=== PATIENT | male | born 1960 | race Caucasian/White ===

== ENCOUNTER 2016-09-25 13:26 | Inpatient (IN) | payer BC ==
[~2016-09-25] VITALS: Ht 177.8 cm; Wt 88.0 kg
[2016-09-25 14:20] LABS: DEFINITIVE Y; Hematocrit 34.5 % (41.0-53.0); Hemoglobin 12.1 g/dL (13.5-17.5); Mean Corpuscular Hemoglobin 32.2 pg (28.0-32.0); Mean Corpuscular Hgb Conc. 35.2 g/dL (32.0-36.0); Mean Corpuscular Volume 91.6 fL (80.0-100.0); Mean Platelet Volume 7.7 fL (7.4-10.4); Platelet Count (auto) 52 10^3/uL (140-450); Red Cell Distribution Width 14.5 % (11.6-16.0); SUSPECT Y; White Blood Cell 19.4 10^3/uL (4.4-10.8)
[2016-09-25 14:31] LABS: Albumin 3.4 g/dL (3.4-5.0); Alkaline Phosphatase 110 U/L (45-117); Anion Gap 8 (5-15); Aspartate Aminotransferase 236 U/L (15-37); BUN/Creatinine Ratio 21.4; Bilirubin, Total 0.3 mg/dL (0.2-1.0); Blood Urea Nitrogen 18 mg/dL (7-18); Calcium 8.5 mg/dL (8.5-10.1); Carbon Dioxide 26 mmol/L (21-32); Chloride 106 mmol/L (98-107); GFR African American 122 mL/min; GFR Non-African American 101 mL/min; Glucose 149 mg/dL (74-106); Magnesium 2.4 mg/dL (1.6-2.6); Potassium 3.9 mmol/L (3.5-5.1); Sodium 140 mmol/L (136-145); Total Protein 6.5 g/dL (6.4-8.2)
[2016-09-25 14:34] LABS: INR 0.91 (0.9-1.15); Partial Thromboplastin Time 22.7 sec (22.64-33.71); Prothrombin Time 9.9 sec (9.37-12.3)
[2016-09-25 14:40] LABS: Promyelocytes % 0
[2016-09-25 17:11] LABS: Anisocytosis Slight; Metamyelocytes % 6; Myelocytes % 1; Platelet Estimate Decreased; Reactive Lymphocytes 2
[2016-09-25 17:12] LABS: Ovalocytes FEW
[2016-09-25] MEDS ORDERED: TEMAZEPAM 15 MG CAP PO PRN (17:45)
[2016-09-25] MEDS ORDERED: MORPHINE SULF INJ 2 MG/ML SYRINGE 1ML IV PRN ×2 (17:45)
[2016-09-25] MEDS ORDERED: LACTULOSE 20Gm/30ML SOLN PO PRN (17:45)
[2016-09-25] MEDS ORDERED: PROMETHAZINE HCL 25 MG/ML 1ML IV PRN (17:45)
[2016-09-25] MEDS ORDERED: NITROGLYCERIN 0.4 MG SL TAB SL PRN (17:45)
[2016-09-25] MEDS ORDERED: LORazepam 0.5 MG TAB PO PRN (17:45)
[2016-09-25] MEDS ORDERED: PANTOPRAZOLE 40 MG TAB PO ONE (18:15)
[2016-09-25 18:17] LABS: Amylase 80 U/L (25-115)
[2016-09-25 19:31] LABS: Urine RBC None Seen /hpf (0 - 3)
[2016-09-25] MEDS: SODIUM CHLORIDE 0.9% 1,000 ML IV SCH (19:44)
[2016-09-25 19:50] LABS: Urine Bilirubin Negative (Negative); Urine Blood Negative /uL (Negative); Urine Color Yellow (Yellow); Urine Glucose Normal (Normal); Urine Ketone Negative (Negative); Urine Nitrite Negative (Negative); Urine Urobilinogen Normal (Negative); Urine pH 6.5 (5.0-8.0)
[2016-09-25 21:30] VITALS: BP 121/74
[2016-09-26] MEDS ORDERED: HYDR-4663 PO (01:01)
[2016-09-26] MEDS ORDERED: OME20T PO (01:01)
[2016-09-26] MEDS ORDERED: ONDA8TAB6 PO (01:01)
[2016-09-26] MEDS ORDERED: DOCU-94 PO (01:01)
[2016-09-26] MEDS ORDERED: ACET-1156 PO (01:01)
[2016-09-26] MEDS ORDERED: PRO10T PO (01:01)
[2016-09-26] MEDS: SODIUM CHLORIDE 0.9% 1,000 ML IV SCH (02:02)
[2016-09-26 05:00] VITALS: BP 125/80
[2016-09-26 06:21] LABS: CONDITION Y; DEFINITIVE Y; Hematocrit 31.2 % (41.0-53.0); Hemoglobin 10.8 g/dL (13.5-17.5); Mean Corpuscular Hemoglobin 32.1 pg (28.0-32.0); Mean Corpuscular Hgb Conc. 34.7 g/dL (32.0-36.0); Mean Corpuscular Volume 92.5 fL (80.0-100.0); Mean Platelet Volume 7.8 fL (7.4-10.4); Platelet Count (auto) 52 10^3/uL (140-450); Red Cell Distribution Width 14.6 % (11.6-16.0); SUSPECT Y; White Blood Cell 18.7 10^3/uL (4.4-10.8)
[2016-09-26 06:28] LABS: Promyelocytes % 0; Reactive Lymphocytes 0
[2016-09-26 06:46] LABS: Potassium 4.6 mmol/L (3.5-5.1)
[2016-09-26 07:01] LABS: BUN/Creatinine Ratio 24.7; Bilirubin, Total 0.2 mg/dL (0.2-1.0); Total Protein 5.7 g/dL (6.4-8.2)
[2016-09-26 09:00] VITALS: BP 132/82
[2016-09-26] MEDS ORDERED: PANTOPRAZOLE 40 MG TAB PO SCH (10:00)
[2016-09-26 10:21] LABS: Metamyelocytes % 2; Myelocytes % 1; Platelet Estimate Decreased
[2016-09-26 12:38] VITALS: BP 132/89
[2016-09-26 13:00] VITALS: BP 120/77
== END 2016-09-26 13:25 | disposition home or self-care (01) | DRG 842 ==
LOC: ER 13:26 → TELE 13:27 → TELE-CENTR 21:25
PROVIDERS: ADMIT Internal Medicine; ATTEND Internal Medicine
DX: C85.10 Unspecified B-cell lymphoma, unspecified site (principal); D64.9 Anemia, unspecified; D69.6 Thrombocytopenia, unspecified; D72.829 Elevated white blood cell count, unspecified; K40.90 Unilateral inguinal hernia, without obstruction or gangrene, not specified as recurrent; K42.9 Umbilical hernia without obstruction or gangrene; R16.1 Splenomegaly, not elsewhere classified; R73.9 Hyperglycemia, unspecified; N28.1 Cyst of kidney, acquired; Z82.49 Family history of ischemic heart disease and other diseases of the circulatory system; Z83.3 Family history of diabetes mellitus; Z86.010 Personal history of colon polyps; Z92.21 Personal history of antineoplastic chemotherapy
CPT/HCPCS: 36415; 71010; 74176; 76705; 80053; 80074; 80320; 81001; 82150; 82550; 83605; 83690; 83735; 85007; 85027; 85610; 85730; 86644; 86645; 87040; 94761

== ENCOUNTER 2016-10-22 13:17 | Inpatient (IN) | payer BC ==
[~2016-10-22] VITALS: Ht 177.8 cm; Wt 91.2 kg
[~2016-10-22 13:17] MED LIST: ACET-1156 PO; DOCU-94 PO; HYDR-4663 PO; OME20T PO; ONDA8TAB6 PO; PRO10T PO
[2016-10-22 15:48] LABS: CONDITION Y; DEFINITIVE SEE PRINTOUT; Hematocrit 33.5 % (41.0-53.0); Mean Corpuscular Hemoglobin 33.5 pg (28.0-32.0); Mean Corpuscular Hgb Conc. 35.8 g/dL (32.0-36.0); Mean Corpuscular Volume 93.6 fL (80.0-100.0); Mean Platelet Volume 9.7 fL (7.4-10.4); Red Cell Distribution Width 17.2 % (11.6-16.0); SUSPECT SEE PRINTOUT; White Blood Cell 17.4 10^3/uL (4.4-10.8)
[2016-10-22 16:02] LABS: Myelocytes % 0; Platelet Count (auto) 32 10^3/uL (140-450); Promyelocytes % 0
[2016-10-22 16:11] LABS: Calcium 8.5 mg/dL (8.5-10.1); Potassium 3.9 mmol/L (3.5-5.1)
[2016-10-22 17:11] LABS: Metamyelocytes % 1; Platelet Estimate Markedly Decreased; Reactive Lymphocytes 1
[2016-10-22 17:12] LABS: Polychromasia Slight
[2016-10-22] MEDS ORDERED: ONDANSETRON HCL 4 MG/2 ML VIAL IV PRN (18:15)
[2016-10-22] MEDS ORDERED: MORPHINE SULF INJ 2 MG/ML SYRINGE 1ML IV PRN (18:15)
[2016-10-22] MEDS ORDERED: SODIUM CHLORIDE 0.9% 1,000 ML IV SCH (18:15)
[2016-10-22] MEDS ORDERED: LORazepam 2MG/ML-1ML VIAL IV ONE (18:15)
[2016-10-22] MEDS ORDERED: PANTOPRAZOLE SODIUM 40 MG/10 ML VIAL IV ONE (19:15)
[2016-10-22 21:50] VITALS: BP 103/62
[2016-10-22 22:05] VITALS: BP 101/63
[2016-10-22] MEDS: DEXAMETHASONE SOD PHOS 4 MG/1ML SDV INJ IV SCH (22:58)
[2016-10-22 23:10] VITALS: BP 116/64
[2016-10-22 23:20] VITALS: BP 116/64
[2016-10-23] VITALS (7 sets, daily range): BP systolic 100–152; BP diastolic 56–91
[2016-10-23] MEDS: DEXAMETHASONE SOD PHOS 4 MG/1ML SDV INJ IV SCH ×3 (05:35→21:45)
[2016-10-23 06:33] LABS: CONDITION Y; DEFINITIVE SEE PRINTOUT; Hematocrit 31.7 % (41.0-53.0); Hemoglobin 10.9 g/dL (13.5-17.5); Mean Corpuscular Hemoglobin 32.6 pg (28.0-32.0); Mean Corpuscular Hgb Conc. 34.5 g/dL (32.0-36.0); Mean Corpuscular Volume 94.8 fL (80.0-100.0); Mean Platelet Volume 8.2 fL (7.4-10.4); Platelet Count (auto) 54 10^3/uL (140-450); Red Cell Distribution Width 17.3 % (11.6-16.0); SUSPECT SEE PRINTOUT; White Blood Cell 19.9 10^3/uL (4.4-10.8)
[2016-10-23 06:44] LABS: Promyelocytes % 0; Reactive Lymphocytes 0
[2016-10-23 06:45] LABS: BUN/Creatinine Ratio 13.9; Calcium 8.4 mg/dL (8.5-10.1); Potassium 4.1 mmol/L (3.5-5.1)
[2016-10-23] MEDS ORDERED: PANTOPRAZOLE SODIUM 40 MG/10 ML VIAL IV SCH (10:00)
[2016-10-23] MEDS: HYDROcodone-ACET 5/325MG TAB PO PRN (11:04)
[2016-10-23 12:24] LABS: Metamyelocytes % 3; Myelocytes % 4
[2016-10-23 12:26] LABS: Platelet Estimate Decreased
[2016-10-23 12:27] LABS: Anisocytosis Moderate; Polychromasia Slight
[2016-10-24] MEDS: HYDROcodone-ACET 5/325MG TAB PO PRN (03:39)
[2016-10-24 05:00] VITALS: BP 136/80
[2016-10-24 05:33] LABS: CONDITION Y; DEFINITIVE SEE PRINTOUT; Hematocrit 31.9 % (41.0-53.0); Hemoglobin 11.1 g/dL (13.5-17.5); Mean Corpuscular Hgb Conc. 34.8 g/dL (32.0-36.0); Mean Corpuscular Volume 94.8 fL (80.0-100.0); Mean Platelet Volume 8.9 fL (7.4-10.4); Platelet Count (auto) 70 10^3/uL (140-450); Red Cell Distribution Width 17.6 % (11.6-16.0); SUSPECT SEE PRINTOUT
[2016-10-24 05:47] LABS: White Blood Cell 32.2 10^3/uL (4.4-10.8)
[2016-10-24] MEDS: DEXAMETHASONE SOD PHOS 4 MG/1ML SDV INJ IV SCH (06:11)
[2016-10-24 06:30] LABS: Promyelocytes % 0; Reactive Lymphocytes 0
[2016-10-24 06:32] LABS: Metamyelocytes % 3; Myelocytes % 1; Platelet Estimate Decreased
[2016-10-24 06:33] LABS: Anisocytosis Moderate; Polychromasia Slight; Tear Drop Cells FEW
[2016-10-24 08:00] VITALS: BP 144/81
[2016-10-24 09:35] VITALS: BP 144/81
== END 2016-10-24 09:45 | disposition home or self-care (01) | DRG 840 ==
LOC: ER 13:17 → EDUNIT# 13:18 → OVERFLOW 13:18 → CENTRAL 23:08
PROVIDERS: ADMIT Internal Medicine; ATTEND Internal Medicine
PROC: 30233R1 Transfusion of Nonautologous Platelets into Peripheral Vein, Percutaneous Approach (ICD-10-PCS; principal; 2016-10-22)
DX: C85.99 Non-Hodgkin lymphoma, unspecified, extranodal and solid organ sites (principal); G93.6 Cerebral edema; I61.9 Nontraumatic intracerebral hemorrhage, unspecified; D69.6 Thrombocytopenia, unspecified; D72.829 Elevated white blood cell count, unspecified; F17.200 Nicotine dependence, unspecified, uncomplicated; M85.80 Other specified disorders of bone density and structure, unspecified site; C88.0 Waldenstrom macroglobulinemia; Z85.841 Personal history of malignant neoplasm of brain; Z80.1 Family history of malignant neoplasm of trachea, bronchus and lung; Z80.7 Family history of other malignant neoplasms of lymphoid, hematopoietic and related tissues; Z81.1 Family history of alcohol abuse and dependence
CPT/HCPCS: 36415; 36430; 70450; 80048; 85007; 85025; 85027; 86850; 86900; 86901; 87081; 96361; 96374; C9113; J1100

== ENCOUNTER → 2016-11-18 | Outpatient (CLI) | payer BC ==
[2016-11-18 11:04] LABS: Basophils # (auto) 0 uL; CONDITION Y; DEFINITIVE SEE PRINTOUT; Eosinophils # (auto) 0.1 uL; Eosinophils % (auto) 0.5 % (0.0-7.0); Lymphocytes # (auto) 1.3 uL; Lymphocytes % (auto) 8.7 % (10.0-50.0); Mean Corpuscular Hemoglobin 33.2 pg (28.0-32.0); Mean Corpuscular Hgb Conc. 34.5 g/dL (32.0-36.0); Mean Corpuscular Volume 96.1 fL (80.0-100.0); Monocytes # (auto) 1.2 uL; Monocytes % (auto) 7.9 % (0.0-12.0); Neutrophils # (auto) 12.3 uL; Neutrophils % (auto) 82.9 % (37.0-80.0); Platelet Count (auto) 178 10^3/uL (140-450); Red Cell Distribution Width 19.1 % (11.6-16.0); White Blood Cell 14.8 10^3/uL (4.4-10.8)
[2016-11-18 11:29] LABS: Albumin 3.6 g/dL (3.4-5.0); BUN/Creatinine Ratio 18.3; Bilirubin, Total 0.5 mg/dL (0.2-1.0); Calcium 8.8 mg/dL (8.5-10.1); Potassium 3.9 mmol/L (3.5-5.1); Total Protein 6.7 g/dL (6.4-8.2)
== END | disposition home or self-care (01) ==
LOC: LAB 10:21
DX: C88.0 Waldenstrom macroglobulinemia (principal); C85.89 Other specified types of non-Hodgkin lymphoma, extranodal and solid organ sites
CPT/HCPCS: 36415; 80053; 85025

== ENCOUNTER → 2016-11-20 | Outpatient (CLI) | payer BC ==
[2016-11-20 08:26] LABS: Basophils # (auto) 0 uL; Basophils % (auto) 0.4 % (0.0-2.0); CONDITION Y; DEFINITIVE SEE PRINTOUT; Eosinophils # (auto) 0.1 uL; Eosinophils % (auto) 0.6 % (0.0-7.0); Hematocrit 34.9 % (41.0-53.0); Hemoglobin 11.9 g/dL (13.5-17.5); Lymphocytes # (auto) 1.6 uL; Lymphocytes % (auto) 17.4 % (10.0-50.0); Mean Corpuscular Hemoglobin 32.7 pg (28.0-32.0); Mean Corpuscular Volume 96.2 fL (80.0-100.0); Mean Platelet Volume 7.4 fL (7.4-10.4); Monocytes # (auto) 0.9 uL; Monocytes % (auto) 10.1 % (0.0-12.0); Neutrophils # (auto) 6.4 uL; Neutrophils % (auto) 71.5 % (37.0-80.0); Platelet Count (auto) 251 10^3/uL (140-450); Red Cell Distribution Width 19.4 % (11.6-16.0)
[2016-11-20 08:50] LABS: BUN/Creatinine Ratio 23.3; Bilirubin, Total 0.5 mg/dL (0.2-1.0); Calcium 8.8 mg/dL (8.5-10.1); Potassium 3.8 mmol/L (3.5-5.1); Total Protein 7.1 g/dL (6.4-8.2)
== END | disposition home or self-care (01) ==
LOC: LAB 08:11
DX: C88.0 Waldenstrom macroglobulinemia (principal); C85.89 Other specified types of non-Hodgkin lymphoma, extranodal and solid organ sites
CPT/HCPCS: 36415; 80053; 85025

== ENCOUNTER → 2016-11-26 | Outpatient (CLI) | payer BC ==
[2016-11-26 10:48] LABS: CONDITION Y; DEFINITIVE SEE PRINTOUT; Hematocrit 31.4 % (41.0-53.0); Hemoglobin 10.9 g/dL (13.5-17.5); Mean Corpuscular Hemoglobin 33.8 pg (28.0-32.0); Mean Corpuscular Hgb Conc. 34.8 g/dL (32.0-36.0); Mean Corpuscular Volume 97.3 fL (80.0-100.0); Mean Platelet Volume 7.5 fL (7.4-10.4); Platelet Count (auto) 247 10^3/uL (140-450); Red Cell Distribution Width 18.5 % (11.6-16.0); SUSPECT SEE PRINTOUT
[2016-11-26 11:02] LABS: Albumin 3.4 g/dL (3.4-5.0); Calcium 8.2 mg/dL (8.5-10.1); Potassium 3.8 mmol/L (3.5-5.1)
[2016-11-26 11:07] LABS: BUN/Creatinine Ratio 30.6; Bilirubin, Total 0.5 mg/dL (0.2-1.0); Total Protein 6.3 g/dL (6.4-8.2)
[2016-11-26 11:08] LABS: White Blood Cell 35.2 10^3/uL (4.4-10.8)
[2016-11-26 11:09] LABS: Metamyelocytes % 0; Myelocytes % 0; Promyelocytes % 0; Reactive Lymphocytes 0
[2016-11-26 15:05] LABS: Platelet Estimate Adequate
[2016-11-26 15:06] LABS: Ovalocytes FEW; Tear Drop Cells FEW
== END | disposition home or self-care (01) ==
LOC: LAB 10:29
DX: C88.0 Waldenstrom macroglobulinemia (principal); C85.89 Other specified types of non-Hodgkin lymphoma, extranodal and solid organ sites; D69.6 Thrombocytopenia, unspecified
CPT/HCPCS: 36415; 80053; 85007; 85027

== ENCOUNTER → 2016-11-27 | Outpatient (CLI) | payer BC ==
[~2016-11-27] MED LIST changes: +ALBUTEROL SULF 2.5 MG/0.5ML(0.5%) NEB SOLN ONE
== END | disposition home or self-care (01) ==
LOC: RT 09:25
PROVIDERS: ATTEND Internal Medicine
DX: Z01.818 Encounter for other preprocedural examination (principal); C85.89 Other specified types of non-Hodgkin lymphoma, extranodal and solid organ sites; D69.6 Thrombocytopenia, unspecified; Z85.841 Personal history of malignant neoplasm of brain; J44.9 Chronic obstructive pulmonary disease, unspecified
CPT/HCPCS: 94060

== ENCOUNTER → 2016-11-28 | Outpatient (CLI) | payer BC ==
[~2016-11-28] MED LIST changes: -ALBUTEROL SULF 2.5 MG/0.5ML(0.5%) NEB SOLN ONE
[2016-11-28 14:22] LABS: CONDITION Y; Hematocrit 31.2 % (41.0-53.0); Hemoglobin 10.7 g/dL (13.5-17.5); Mean Corpuscular Hemoglobin 33.3 pg (28.0-32.0); Mean Corpuscular Hgb Conc. 34.2 g/dL (32.0-36.0); Mean Corpuscular Volume 97.3 fL (80.0-100.0); Platelet Count (auto) 127 10^3/uL (140-450); Red Cell Distribution Width 18.1 % (11.6-16.0); SUSPECT SEE PRINTOUT; White Blood Cell 11.7 10^3/uL (4.4-10.8)
[2016-11-28 14:30] LABS: Metamyelocytes % 0; Myelocytes % 0; Promyelocytes % 0; Reactive Lymphocytes 0
[2016-11-28 14:50] LABS: Albumin 3.5 g/dL (3.4-5.0); BUN/Creatinine Ratio 26.5; Bilirubin, Total 0.5 mg/dL (0.2-1.0); Calcium 8.7 mg/dL (8.5-10.1); Potassium 3.9 mmol/L (3.5-5.1); Total Protein 6.7 g/dL (6.4-8.2)
[2016-11-28 17:07] LABS: Platelet Estimate Decreased
[2016-11-28 17:08] LABS: Ovalocytes FEW; Tear Drop Cells FEW
== END | disposition home or self-care (01) ==
LOC: LAB 13:59
DX: C85.89 Other specified types of non-Hodgkin lymphoma, extranodal and solid organ sites (principal); C88.0 Waldenstrom macroglobulinemia
CPT/HCPCS: 36415; 80053; 85007; 85027

== ENCOUNTER → 2016-12-02 | Outpatient (CLI) | payer BC ==
[2016-12-02 10:12] LABS: CONDITION Y; DEFINITIVE SEE PRINTOUT; Hematocrit 29.6 % (41.0-53.0); Hemoglobin 10.2 g/dL (13.5-17.5); Mean Corpuscular Hemoglobin 33.7 pg (28.0-32.0); Mean Corpuscular Hgb Conc. 34.6 g/dL (32.0-36.0); Mean Corpuscular Volume 97.3 fL (80.0-100.0); Mean Platelet Volume 9.1 fL (7.4-10.4); Platelet Count (auto) 28 10^3/uL (140-450); Red Cell Distribution Width 17.2 % (11.6-16.0); SUSPECT SEE PRINTOUT; White Blood Cell 9.6 10^3/uL (4.4-10.8)
[2016-12-02 10:34] LABS: Albumin 3.8 g/dL (3.4-5.0); Bilirubin, Total 0.7 mg/dL (0.2-1.0); Calcium 8.7 mg/dL (8.5-10.1); Total Protein 6.9 g/dL (6.4-8.2)
[2016-12-02 11:05] LABS: Metamyelocytes % 0; Myelocytes % 0; Promyelocytes % 0; Reactive Lymphocytes 0
[2016-12-02 11:33] LABS: Anisocytosis Marked; Platelet Estimate Decreased
== END | disposition home or self-care (01) ==
LOC: LAB 09:34
DX: C88.0 Waldenstrom macroglobulinemia (principal); C85.89 Other specified types of non-Hodgkin lymphoma, extranodal and solid organ sites
CPT/HCPCS: 36415; 80053; 85007; 85027

== ENCOUNTER → 2016-12-05 | Outpatient (CLI) | payer BC ==
[2016-12-05 09:01] LABS: CONDITION Y; DEFINITIVE SEE PRINTOUT; Hematocrit 30.6 % (41.0-53.0); Hemoglobin 10.5 g/dL (13.5-17.5); Mean Corpuscular Hemoglobin 33.8 pg (28.0-32.0); Mean Corpuscular Hgb Conc. 34.3 g/dL (32.0-36.0); Mean Corpuscular Volume 98.4 fL (80.0-100.0); Mean Platelet Volume 8.8 fL (7.4-10.4); Platelet Count (auto) 47 10^3/uL (140-450); Red Cell Distribution Width 17.9 % (11.6-16.0); SUSPECT SEE PRINTOUT; White Blood Cell 23.5 10^3/uL (4.4-10.8)
[2016-12-05 09:12] LABS: Albumin 3.7 g/dL (3.4-5.0); Calcium 8.2 mg/dL (8.5-10.1); Potassium 3.9 mmol/L (3.5-5.1)
[2016-12-05 09:15] LABS: BUN/Creatinine Ratio 9.8
[2016-12-05 09:18] LABS: Bilirubin, Total 0.5 mg/dL (0.2-1.0)
[2016-12-05 09:19] LABS: Total Protein 6.6 g/dL (6.4-8.2)
[2016-12-05 09:42] LABS: Promyelocytes % 0; Reactive Lymphocytes 0
[2016-12-05 09:45] LABS: Metamyelocytes % 3; Myelocytes % 2; Platelet Estimate Decreased
== END | disposition home or self-care (01) ==
LOC: LAB 08:30
DX: C85.89 Other specified types of non-Hodgkin lymphoma, extranodal and solid organ sites (principal); C88.0 Waldenstrom macroglobulinemia
CPT/HCPCS: 36415; 80053; 85007; 85027

== ENCOUNTER → 2016-12-30 | Outpatient (CLI) | payer BC ==
[2016-12-30 10:36] LABS: CONDITION Y; Hematocrit 36.9 % (41.0-53.0); Hemoglobin 12.5 g/dL (13.5-17.5); Mean Corpuscular Hemoglobin 32.5 pg (28.0-32.0); Mean Corpuscular Hgb Conc. 33.9 g/dL (32.0-36.0); Mean Platelet Volume 8.4 fL (6.9-10.8); Platelet Count (auto) 154 10^3/uL (140-450); Red Cell Distribution Width 15.4 % (11.8-14.3); SUSPECT SEE PRINTOUT; White Blood Cell 26.9 10^3/uL (4.4-10.8)
[2016-12-30 10:39] LABS: Metamyelocytes % 0; Myelocytes % 0; Promyelocytes % 0; Reactive Lymphocytes 0
[2016-12-30 10:59] LABS: Albumin 3.8 g/dL (3.4-5.0); BUN/Creatinine Ratio 18.9; Bilirubin, Total 0.4 mg/dL (0.2-1.0); Calcium 8.8 mg/dL (8.5-10.1); Potassium 3.7 mmol/L (3.5-5.1); Total Protein 7.1 g/dL (6.4-8.2)
[2016-12-30 11:04] LABS: Ovalocytes FEW; Platelet Estimate Adequate
== END | disposition home or self-care (01) ==
LOC: LAB 10:16
DX: C88.0 Waldenstrom macroglobulinemia (principal); C85.89 Other specified types of non-Hodgkin lymphoma, extranodal and solid organ sites
CPT/HCPCS: 36415; 80053; 85007; 85027

== ENCOUNTER → 2017-01-22 | Outpatient (CLI) | payer BC ==
[2017-01-22 07:27] LABS: BUN/Creatinine Ratio 21.6; Bilirubin, Total 0.3 mg/dL (0.2-1.0); Calcium 8.8 mg/dL (8.5-10.1); Potassium 4.7 mmol/L (3.5-5.1); Total Protein 6.8 g/dL (6.4-8.2)
[2017-01-22 07:33] LABS: Basophils # (auto) 0 uL; Basophils % (auto) 0.6 % (0.0-2.0); Eosinophils # (auto) 0.1 uL; Eosinophils % (auto) 1.6 % (0.0-7.0); Hematocrit 37.4 % (41.0-53.0); Hemoglobin 12.6 g/dL (13.5-17.5); Lymphocytes # (auto) 1.3 uL; Lymphocytes % (auto) 29.4 % (10.0-50.0); Mean Corpuscular Hemoglobin 32.4 pg (28.0-32.0); Mean Corpuscular Hgb Conc. 33.8 g/dL (32.0-36.0); Monocytes # (auto) 0.7 uL; Monocytes % (auto) 17.1 % (0.0-12.0); Neutrophils # (auto) 2.3 uL; Neutrophils % (auto) 51.3 % (37.0-80.0); Nucleated Red Blood Cells % 0.1 %; Platelet Count (auto) 184 10^3/uL (140-450); Red Cell Distribution Width 16.4 % (11.8-14.3); White Blood Cell 4.4 10^3/uL (4.4-10.8)
[2017-01-22 08:14] LABS: Platelet Estimate Adequate
[2017-01-22 08:15] LABS: Platelet Clumps FEW
== END | disposition home or self-care (01) ==
LOC: LAB 06:37
PROVIDERS: ATTEND Internal Medicine
DX: C85.89 Other specified types of non-Hodgkin lymphoma, extranodal and solid organ sites (principal); C83.00 Small cell B-cell lymphoma, unspecified site
CPT/HCPCS: 36415; 80053; 85025

== ENCOUNTER → 2017-01-31 | Outpatient (CLI) | payer BC ==
[~2017-01-31] MED LIST changes: -HYDR-4663 PO; +HYDR-4683 PO
[2017-01-31 07:49] LABS: Basophils # (auto) 0 uL; Eosinophils # (auto) 0 uL; Hemoglobin 11.1 g/dL (13.5-17.5); Lymphocytes # (auto) 0.3 uL; Monocytes # (auto) 0 uL; Monocytes % (auto) 1.2 % (0.0-12.0); White Blood Cell 2.7 10^3/uL (4.4-10.8)
[2017-01-31 07:51] LABS: Basophils % (auto) 0.3 % (0.0-2.0); Eosinophils % (auto) 0.7 % (0.0-7.0); Lymphocytes % (auto) 10.8 % (10.0-50.0); Mean Corpuscular Hemoglobin 32.2 pg (28.0-32.0); Mean Corpuscular Hgb Conc. 33.6 g/dL (32.0-36.0); Mean Corpuscular Volume 95.7 fL (80.0-100.0); Mean Platelet Volume 6.8 fL (6.9-10.8); Neutrophils # (auto) 2.4 uL; Nucleated Red Blood Cells % 0.2 %; Platelet Count (auto) 50 10^3/uL (140-450); Red Cell Distribution Width 15.4 % (11.8-14.3)
[2017-01-31 08:16] LABS: Albumin 3.8 g/dL (3.4-5.0); Bilirubin, Total 0.9 mg/dL (0.2-1.0); Calcium 8.6 mg/dL (8.5-10.1); Potassium 4.3 mmol/L (3.5-5.1); Total Protein 6.5 g/dL (6.4-8.2)
[2017-01-31 08:41] LABS: Platelet Estimate Decreased
[2017-01-31 08:42] LABS: Anisocytosis Slight
== END | disposition home or self-care (01) ==
LOC: LAB 07:30
PROVIDERS: ATTEND Internal Medicine
DX: Z09 Encounter for follow-up examination after completed treatment for conditions other than malignant neoplasm (principal); C85.90 Non-Hodgkin lymphoma, unspecified, unspecified site
CPT/HCPCS: 36415; 80053; 85025

== ENCOUNTER → 2017-02-05 | Outpatient (CLI) | payer BC ==
[2017-02-05 14:02] LABS: Albumin 3.9 g/dL (3.4-5.0); BUN/Creatinine Ratio 23.8; Bilirubin, Total 1.4 mg/dL (0.2-1.0); Calcium 8.8 mg/dL (8.5-10.1); Potassium 3.8 mmol/L (3.5-5.1)
[2017-02-05 14:17] LABS: Hemoglobin 9.7 g/dL (13.5-17.5)
[2017-02-05 14:19] LABS: Hematocrit 27.1 % (41.0-53.0); Mean Corpuscular Hemoglobin 31.9 pg (28.0-32.0); Mean Corpuscular Hgb Conc. 35.7 g/dL (32.0-36.0); Mean Corpuscular Volume 89.6 fL (80.0-100.0); Mean Platelet Volume 10.2 fL (6.9-10.8); Red Cell Distribution Width 13.9 % (11.8-14.3)
[2017-02-05 14:25] LABS: White Blood Cell 0.4 10^3/uL (4.4-10.8)
[2017-02-05 14:26] LABS: Platelet Count (auto) 6 10^3/uL (140-450)
[2017-02-05 14:28] LABS: Metamyelocytes % 0; Myelocytes % 0; Promyelocytes % 0; Reactive Lymphocytes 0
[2017-02-05 16:56] LABS: Platelet Estimate Markedly Decreased
== END | disposition home or self-care (01) ==
LOC: LAB 13:17
PROVIDERS: ATTEND Internal Medicine
DX: C88.0 Waldenstrom macroglobulinemia (principal); Z86.51 Personal history of combat and operational stress reaction
CPT/HCPCS: 36415; 80053; 83615; 85007; 85027

== ENCOUNTER → 2017-02-07 | Outpatient (CLI) | payer BC ==
[2017-02-07 08:11] LABS: Mean Corpuscular Hemoglobin 32.3 pg (28.0-32.0); Mean Corpuscular Hgb Conc. 36.2 g/dL (32.0-36.0); Mean Corpuscular Volume 89.4 fL (80.0-100.0); Mean Platelet Volume 7.5 fL (6.9-10.8); Platelet Count (auto) 49 10^3/uL (140-450); Red Cell Distribution Width 13.5 % (11.8-14.3)
[2017-02-07 08:24] LABS: White Blood Cell 0.4 10^3/uL (4.4-10.8)
[2017-02-07 08:25] LABS: Metamyelocytes % 0; Myelocytes % 0; Promyelocytes % 0; Reactive Lymphocytes 0
[2017-02-07 09:18] LABS: Platelet Estimate Decreased
[2017-02-07 09:19] LABS: Tear Drop Cells FEW
== END | disposition home or self-care (01) ==
LOC: LAB 07:36
PROVIDERS: ATTEND Internal Medicine
DX: Z92.21 Personal history of antineoplastic chemotherapy (principal); Z92.89 Personal history of other medical treatment
CPT/HCPCS: 36415; 85007; 85027

== ENCOUNTER → 2017-02-12 | Outpatient (CLI) | payer BC ==
[2017-02-12 07:40] LABS: White Blood Cell 5.6 10^3/uL (4.4-10.8)
[2017-02-12 07:42] LABS: Hematocrit 22.5 % (41.0-53.0); Mean Corpuscular Hemoglobin 31.8 pg (28.0-32.0); Mean Corpuscular Hgb Conc. 35.6 g/dL (32.0-36.0); Mean Corpuscular Volume 89.3 fL (80.0-100.0); Platelet Count (auto) 46 10^3/uL (140-450); Red Blood Cells 2.52 10^6/uL (4.5-5.90); Red Cell Distribution Width 13.6 % (11.8-14.3)
[2017-02-12 07:49] LABS: Basophils % (manual) 0 (0.0-2.0); Blast Cells 0; Eosinophils % (manual) 0 (0-7); Myelocytes % 0; Promyelocytes % 0; Reactive Lymphocytes 0
[2017-02-12 08:06] LABS: Band Neutrophils % (manual) 8; Lymphocytes % (manual) 8 (10.0-50.0); Metamyelocytes % 1; Monocytes % (manual) 13 (0-12)
== END | disposition home or self-care (01) ==
LOC: LAB 07:21
PROVIDERS: ATTEND Internal Medicine
DX: C88.0 Waldenstrom macroglobulinemia (principal)
CPT/HCPCS: 36415; 85007; 85027

== ENCOUNTER → 2017-02-17 | Outpatient (CLI) | payer BC ==
[2017-02-17 11:43] LABS: Hematocrit 24.7 % (41.0-53.0); Hemoglobin 8.7 g/dL (13.5-17.5); Mean Corpuscular Hemoglobin 32.2 pg (28.0-32.0); Mean Corpuscular Hgb Conc. 35.1 g/dL (32.0-36.0); Mean Corpuscular Volume 91.6 fL (80.0-100.0); Platelet Count (auto) 153 10^3/uL (140-450); Red Blood Cells 2.69 10^6/uL (4.5-5.90); White Blood Cell 6.5 10^3/uL (4.4-10.8)
[2017-02-17 11:50] LABS: Band Neutrophils % (manual) 0; Basophils % (manual) 0 (0.0-2.0); Eosinophils % (manual) 0 (0-7)
[2017-02-17 11:51] LABS: Blast Cells 0; Promyelocytes % 0; Reactive Lymphocytes 0
[2017-02-17 12:04] LABS: Lymphocytes % (manual) 13 (10.0-50.0); Metamyelocytes % 2; Monocytes % (manual) 5 (0-12); Myelocytes % 2
[2017-02-17 12:08] LABS: Albumin 3.4 g/dL (3.4-5.0); BUN/Creatinine Ratio 20.2; Bilirubin, Total 0.4 mg/dL (0.2-1.0)
== END | disposition home or self-care (01) ==
LOC: LAB 11:29
PROVIDERS: ATTEND Internal Medicine
DX: C83.00 Small cell B-cell lymphoma, unspecified site (principal)
CPT/HCPCS: 36415; 80053; 85007; 85027

== ENCOUNTER → 2017-02-26 | Outpatient (CLI) | payer BC ==
[2017-02-26 11:33] LABS: Basophils # (auto) 0.1 uL; Basophils % (auto) 1.3 % (0.0-2.0); Eosinophils # (auto) 0 uL; Eosinophils % (auto) 0.6 % (0.0-7.0); Hemoglobin 9.5 g/dL (13.5-17.5); Lymphocytes # (auto) 0.3 uL; Lymphocytes % (auto) 4.9 % (10.0-50.0); Mean Corpuscular Hemoglobin 30.1 pg (28.0-32.0); Mean Corpuscular Volume 88.5 fL (80.0-100.0); Mean Platelet Volume 6.4 fL (6.9-10.8); Monocytes # (auto) 0.2 uL; Monocytes % (auto) 2.6 % (0.0-12.0); Neutrophils # (auto) 6.4 uL; Neutrophils % (auto) 90.6 % (37.0-80.0); Nucleated Red Blood Cells % 0.1 %; Platelet Count (auto) 210 10^3/uL (140-450)
[2017-02-26 12:02] LABS: Red Cell Distribution Width 20.2 % (11.8-14.3)
[2017-02-26 12:03] LABS: Albumin 3.9 g/dL (3.4-5.0); BUN/Creatinine Ratio 26.4; Bilirubin, Total 0.8 mg/dL (0.2-1.0); Calcium 8.9 mg/dL (8.5-10.1); Potassium 3.9 mmol/L (3.5-5.1); Total Protein 7.3 g/dL (6.4-8.2)
[2017-02-26 12:22] LABS: Urine Bilirubin Negative (Negative); Urine Blood Negative /uL (Negative); Urine Color Yellow (Yellow); Urine Glucose Normal (Normal); Urine Ketone Negative (Negative); Urine Nitrite Negative (Negative); Urine RBC <1 /hpf (0 - 3); Urine Urobilinogen Normal (Negative)
[2017-02-26 12:50] LABS: Anisocytosis Slight; Ovalocytes FEW; Platelet Estimate Adequate
== END | disposition home or self-care (01) ==
LOC: LAB 11:01
PROVIDERS: ATTEND Internal Medicine
DX: C85.90 Non-Hodgkin lymphoma, unspecified, unspecified site (principal); Z79.899 Other long term (current) drug therapy
CPT/HCPCS: 36415; 80053; 81001; 84439; 84443; 85025; 86592; 86703; 86790

== ENCOUNTER → 2017-03-03 | Outpatient (CLI) | payer BC ==
[2017-03-03 08:23] LABS: Hemoglobin 8.4 g/dL (13.5-17.5); Mean Platelet Volume 6.7 fL (6.9-10.8)
[2017-03-03 08:25] LABS: Hematocrit 24.2 % (41.0-53.0); Mean Corpuscular Hemoglobin 30.8 pg (28.0-32.0); Mean Corpuscular Hgb Conc. 34.6 g/dL (32.0-36.0); Mean Corpuscular Volume 89.1 fL (80.0-100.0); Platelet Count (auto) 48 10^3/uL (140-450); Red Cell Distribution Width 19.1 % (11.8-14.3)
[2017-03-03 08:41] LABS: White Blood Cell 0.7 10^3/uL (4.4-10.8)
[2017-03-03 08:42] LABS: Metamyelocytes % 0; Myelocytes % 0; Promyelocytes % 0; Reactive Lymphocytes 0
[2017-03-03 08:51] LABS: Albumin 3.9 g/dL (3.4-5.0); BUN/Creatinine Ratio 24.4; Bilirubin, Total 0.7 mg/dL (0.2-1.0); Calcium 8.7 mg/dL (8.5-10.1); Potassium 3.9 mmol/L (3.5-5.1); Total Protein 7.1 g/dL (6.4-8.2)
[2017-03-03 12:09] LABS: Anisocytosis Slight; Ovalocytes FEW; Platelet Estimate Decreased; Tear Drop Cells FEW
== END | disposition home or self-care (01) ==
LOC: LAB 08:06
PROVIDERS: ATTEND Internal Medicine
DX: C88.0 Waldenstrom macroglobulinemia (principal)
CPT/HCPCS: 36415; 80053; 83615; 85007; 85027

== ENCOUNTER → 2017-03-05 | Outpatient (CLI) | payer BC ==
[~2017-03-05] MED LIST changes: +ALBUTEROL SULF 2.5 MG/0.5ML(0.5%) NEB SOLN ONE; +SODIUM CHLORIDE 0.9 % NEB SOLN 3ML NEB ONE
== END | disposition home or self-care (01) ==
LOC: RT 08:24
PROVIDERS: ATTEND Internal Medicine
DX: Z01.811 Encounter for preprocedural respiratory examination (principal)
CPT/HCPCS: 94060

== ENCOUNTER → 2017-03-10 | Outpatient (CLI) | payer BC ==
[~2017-03-10] MED LIST changes: -ALBUTEROL SULF 2.5 MG/0.5ML(0.5%) NEB SOLN ONE; -SODIUM CHLORIDE 0.9 % NEB SOLN 3ML NEB ONE
[2017-03-10 11:00] LABS: Hematocrit 18.1 % (41.0-53.0); Mean Corpuscular Hgb Conc. 34.9 g/dL (32.0-36.0); Mean Corpuscular Volume 86.2 fL (80.0-100.0); Mean Platelet Volume 6.6 fL (6.9-10.8)
[2017-03-10 11:12] LABS: Hemoglobin 6.3 g/dL (13.5-17.5); Platelet Count (auto) 14 10^3/uL (140-450); White Blood Cell 1.7 10^3/uL (4.4-10.8)
[2017-03-10 11:13] LABS: Metamyelocytes % 0; Myelocytes % 0; Promyelocytes % 0; Reactive Lymphocytes 0
[2017-03-10 12:40] LABS: Platelet Estimate Markedly Decreased
[2017-03-10 12:41] LABS: Hypochromia Marked; Schistocytes FEW
== END | disposition home or self-care (01) ==
LOC: LAB 10:30
PROVIDERS: ATTEND Internal Medicine
DX: C88.0 Waldenstrom macroglobulinemia (principal)
CPT/HCPCS: 36415; 85007; 85027

== ENCOUNTER 2017-12-04 13:48 | Emergency (ER) | payer BC ==
[~2017-12-04] VITALS: Ht 177.8 cm; Wt 76.2 kg
[~2017-12-04 13:48] MED LIST changes: +ONDA-143 PO; -ONDA8TAB6 PO
[2017-12-04 15:50] LABS: Basophils # (auto) 0 uL; Eosinophils # (auto) 0 uL; Eosinophils % (auto) 0.8 % (0.0-7.0); Hemoglobin 13.4 g/dL (13.5-17.5); Lymphocytes # (auto) 0.9 uL; Monocytes # (auto) 0.5 uL; White Blood Cell 5.6 10^3/uL (4.4-10.8)
[2017-12-04 15:53] LABS: Basophils % (auto) 0.3 % (0.0-2.0); Hematocrit 37.7 % (41.0-53.0); Lymphocytes % (auto) 15.9 % (10.0-50.0); Mean Corpuscular Hemoglobin 37.7 pg (28.0-32.0); Mean Corpuscular Hgb Conc. 35.5 g/dL (32.0-36.0); Mean Corpuscular Volume 106.2 fL (80.0-100.0); Monocytes % (auto) 9.2 % (0.0-12.0); Neutrophils # (auto) 4.2 uL; Neutrophils % (auto) 73.8 % (37.0-80.0); Nucleated Red Blood Cells % 0.1 %; Platelet Count (auto) 92 10^3/uL (140-450); Red Blood Cells 3.55 10^6/uL (4.5-5.90); Red Cell Distribution Width 15.4 % (11.8-14.3)
[2017-12-04 16:11] LABS: INR 0.95 (0.9-1.15)
[2017-12-04 16:36] LABS: Urine Bacteria FEW /hpf (None Seen); Urine Blood Negative /uL (Negative); Urine Hyaline Cast FEW /lpf (0 - 2); Urine Mucus FEW (None Seen); Urine Specific Gravity 1.028 (1.001-1.035); Urine WBC 4 /hpf (0 - 3)
[2017-12-04 16:56] LABS: Alanine Aminotransferase 43 U/L (16-61); Albumin 4.1 g/dL (3.4-5.0); Alkaline Phosphatase 89 U/L (45-117); Anion Gap 8 (5-15); Aspartate Aminotransferase 27 U/L (15-37); BUN/Creatinine Ratio 27.9; Bilirubin, Total 0.7 mg/dL (0.2-1.0); Blood Urea Nitrogen 24 mg/dL (7-18); Calcium 8.9 mg/dL (8.5-10.1); Carbon Dioxide 26 mmol/L (21-32); Chloride 106 mmol/L (98-107); GFR African American 118 mL/min; GFR Non-African American 98 mL/min; Glucose 95 mg/dL (74-106); Magnesium 2.4 mg/dL (1.6-2.6); Potassium 4.6 mmol/L (3.5-5.1); Sodium 140 mmol/L (136-145); Total Protein 6.5 g/dL (6.4-8.2)
[2017-12-04 18:55] VITALS: BP 106/62
== END 2017-12-04 19:05 | disposition home or self-care (01) ==
LOC: EDUNIT# 13:48 → ER 13:48
DX: R55 Syncope and collapse (principal); F41.9 Anxiety disorder, unspecified; F12.10 Cannabis abuse, uncomplicated
CPT/HCPCS: 36415; 70450; 71045; 80053; 81001; 83615; 83735; 83880; 84443; 84484; 85025; 85379; 85610; 85730; 93005; 94761

== ENCOUNTER 2023-11-19 09:05 | Day surgery (SDC) | payer BC ==
[2023-11-17 10:05] LABS: Urine Bacteria None Seen /hpf (None Seen); Urine WBC None Seen /hpf (0 - 3)
[2023-11-17 10:10] LABS: Basophils # (auto) 0 10 ^3/uL (0-0.2); Basophils % (auto) 0.4 % (0.0-2.0); Eosinophils # (auto) 0.1 10 ^3/uL (0-0.8); Eosinophils % (auto) 1.1 % (0.0-7.0); Hematocrit 41.8 % (41.0-53.0); Hemoglobin 14.2 g/dL (13.5-17.5); Lymphocytes # (auto) 2.2 10 ^3/uL (0.4-5.4); Lymphocytes % (auto) 38.2 % (10.0-50.0); Mean Corpuscular Hemoglobin 33.3 pg (28.0-32.0); Mean Corpuscular Volume 97.8 fL (80.0-100.0); Monocytes # (auto) 0.4 10 ^3/uL (0-1.3); Neutrophils # (auto) 3.1 10 ^3/uL (1.6-8.6); Neutrophils % (auto) 53.3 % (37.0-80.0); Nucleated Red Blood Cells % 0.1 %; Red Blood Cells 4.27 10^6/uL (4.5-5.90); Red Cell Distribution Width 14.1 % (11.8-14.3); White Blood Cell 5.7 10^3/uL (4.4-10.8)
[2023-11-17 10:28] LABS: INR 0.99 (0.9-1.15); Partial Thromboplastin Time 26.9 SEC (24.5-34.5); Prothrombin Time 10.5 sec (9.3-11.8)
[2023-11-17 10:37] LABS: Urine Blood Negative /uL (Negative); Urine Clarity Clear (Clear); Urine Protein, UAD Negative (Negative); Urine Specific Gravity 1.004 (1.001-1.035); Urine Urobilinogen Normal (Negative)
[2023-11-17 10:40] LABS: Urine Color STRAW (Yellow)
[2023-11-17 11:09] LABS: Alanine Aminotransferase 21 U/L (7-40); Albumin 4.6 g/dL (3.2-4.8); Alkaline Phosphatase 52 U/L (46-116); Anion Gap 7 (5-15); Aspartate Aminotransferase 16 U/L (13-40); BUN/Creatinine Ratio 18.5 (10.0-20.0); Blood Urea Nitrogen 17 mg/dL (9-23); Calcium 9.8 mg/dL (8.7-10.4); Carbon Dioxide 25 mmol/L (20-30); Chloride 106 mmol/L (98-107); Glucose 102 mg/dL (74-106); Potassium 4.4 mmol/L (3.5-5.1); Sodium 138 mmol/L (136-145)
[2023-11-17 11:10] LABS: Bilirubin, Total 0.8 mg/dL (0.2-1.0); Total Protein 6.6 g/dL (5.7-8.2)
[~2023-11-19] VITALS: Ht 177.8 cm; Wt 86.6 kg
[~2023-11-19 09:05] MED LIST changes: -ACET-1156 PO; -DOCU-94 PO; -HYDR-4683 PO; +LORA-1121 PO; -OME20T PO; -ONDA-143 PO; -PRO10T PO
[2023-11-19] MEDS ORDERED: diphenhdrAMINE HCL 50 MG/1 ML VL ONE (10:09)
[2023-11-19] MEDS ORDERED: SODIUM CHLORIDE LOCK 10 ML ONE (10:09)
[2023-11-19 12:32] VITALS: PULSE 53; RESP 14; O2SAT 97
[2023-11-19] MEDS: LIDOCAINE VISCOUS 2% 15ML UD ONE (12:35)
[2023-11-19] MEDS: fentaNYL CITRATE 100 MCG/2 ML VL ONE ×2 (12:52→13:15)
[2023-11-19] MEDS: MIDAZOLAM HCL 5 MG/ML-1ML VIAL ONE ×2 (12:52→13:15)
[2023-11-19 13:39] VITALS: PULSE 53; RESP 12; TEMP 98; O2SAT 97
[2023-11-19 14:05] VITALS: BP 120/61; PULSE 47; RESP 12; O2SAT 96
== END 2023-11-19 14:15 | disposition home or self-care (01) ==
LOC: GI 09:05
PROVIDERS: ATTEND Internal Medicine Gastroenterology
DX: Z12.11 Encounter for screening for malignant neoplasm of colon (principal); K29.50 Unspecified chronic gastritis without bleeding; K62.1 Rectal polyp; K29.80 Duodenitis without bleeding; K44.9 Diaphragmatic hernia without obstruction or gangrene; K20.90 Esophagitis, unspecified without bleeding; K57.30 Diverticulosis of large intestine without perforation or abscess without bleeding; K52.9 Noninfective gastroenteritis and colitis, unspecified; F17.210 Nicotine dependence, cigarettes, uncomplicated; K63.89 Other specified diseases of intestine; Z80.8 Family history of malignant neoplasm of other organs or systems; Z98.890 Other specified postprocedural states; Z85.89 Personal history of malignant neoplasm of other organs and systems; Z86.2 Personal history of diseases of the blood and blood-forming organs and certain disorders involving the immune mechanism
CPT/HCPCS: 36415; 43239; 45380; 80053; 81001; 85025; 85610; 85730; 88305; 88312; 88342; J2250; J3010; J7030; 99152; 99153